=== PATIENT | male | born 1950 | race Caucasian/White ===

== ENCOUNTER 2017-03-18 09:12 | Day surgery (SDC) | payer MEDICARE, BC ==
[~2017-03-18] VITALS: Ht 185.4 cm; Wt 118.5 kg
[2017-03-18] VITALS (12 sets, daily range): BP systolic 100–131; BP diastolic 58–84; PULSE 57–67; RESP 12–18; TEMP 97–97.8; O2SAT 91–97; Ht 185.4 cm; Wt 118.5 kg
[~2017-03-18 09:12] MED LIST: LIDOCAINE 1% (10mg/ml) 2ml SDV INJ ONE; LR 1,000 ML IV SCH
--- OUTSIDE RECORDS SUMMARY | 2017-03-18 09:18 | XMS REPORT | Continuity of Care Document ---
Author Author [facility] Organization [facility] Address Unknown Phone Unavailable Allergies Medications Problems Procedures Code Description Performed By Performed On 14.52 DETACH RETINA-CRYOTHERAP Alton Caballero MD 05/05/2013 14.74 MECH VITRECTOMY NEC Alton Caballero MD 05/05/2013 Results Test Result Range HEMOGLOBIN - 05/05/13 06:00 MEAN CELL VOLUME 91.2 fl 80.0-100.0 HEMOGLOBIN 16.7 gm/dL 14.0-18.0 METABOLIC PANEL, BASIC - 05/05/13 06:00 POTASSIUM 4.3 mmol/L 3.5-5.3 EST GFR (MDRD) > 60 mL/min > 59 ANION GAP 10 mmol/L 5-15 EST CrCl (CG) > 60 mL/min > 59 GLUCOSE 115 mg/dL 70-99 CALCIUM 8.5 mg/dL 8.5-10.1 BLOOD UREA NITROGEN 18 mg/dL 7-20 CREATININE 1.2 mg/dL 0.8-1.3 SODIUM 143 mmol/L 135-148 CHLORIDE 107 mmol/L 98-110 CARBON DIOXIDE 26 mmol/L 21-32 Encounters ACCT No. Visit Date/Time Discharge Status Pt. Type Provider Facility Loc./Unit Complaint [id number] 05/05/2013 05:37:00 2012 08:45:00 DIS Outpatient Alton Caballero MD [facility] [place]
[2017-03-18] MEDS ORDERED: DIAPLEX PO (09:48)
[2017-03-18] MEDS ORDERED: CYCL-375 PO (09:50)
[2017-03-18] MEDS ORDERED: MELO-267 PO (09:50)
--- NOTE | 2017-03-18 10:34 | ANESPREOP ---
Anesthesia Record Date and Time DATE: 03/18/17 TIME: 10:31 Proposed Surgical Procedure RT ULNAR NERVE TRANSPOSITION NPO since: 2229 Allergies: Coded Allergies: ciprofloxacin (Verified Allergy, Mild, ITCHING, 03/18/17) Ht/Wt/BMI Height: 6 ' 1.00 " Weight: 118.500 kg BMI: 34.5 kg/m2 Vital Signs Date Time Temp Pulse Resp B/P Pulse Ox O2 Delivery O2 Flow Rate FiO2 03/18/17 09:30 97.8 67 18 128/84 94 Room Air Medications Inpatient Medications Current Medications Medications (Trade) Dose Ordered Sig/Rachel Start Time Stop Time Status Last Admin Dose Admin Lactated Ringer's (Lactated Ringers) 1,000 ml @ 50 mls/hr Q20H 03/18/17 07:00 03/18/17 09:45 50 MLS/HR Cyclobenzaprine HCl (Cyclobenzaprine HCl) 10 Mg Tablet, 1 TAB PO TID PRN for PAIN/AIR HUNGER, (Reported) Last Taken: on 03/04/17 0800 Meloxicam (Meloxicam) 15 Mg Tablet, 15 MG PO DAILY, (Reported) Last Taken: on 03/04/17 0949 [Diaplex] , 1 CAP PO DAILY, (Reported) Last Taken: on 03/10/17 0830 Currently on Beta Dacia: No Medical/Surgical History Anesthesia PMH: Reports: *Hypertension (HX. NOT ON REGULAR BASIS-NO MEDS), Arthritis, CVA/Stroke/TIA (questionable TIA in the past), Obesity, Other ( chronic numbness of right hand, fingers over 6 months. ), Sleep Apnea (per ) Smoking Status: Former smoker (quit 12 years ago) Use Chewing Tobacco?: No (former quit 6 years ago) Substance Use Type: does not use Alcohol Intake: rarely Past Surgical History Orthopedic Surgeries: Abdominal Surgeries: Genitourinary Surgeries: Cardiac Surgeries: Endocrine Surgeries: Reproductive Surgeries: Neurological Surgeries: Ear Surgeries: Nose Surgeries: Throat Surgeries: Other Surgeries: Yes - TORN RETINA, CAT.- LEFT EYE Anesthesia Adverse Reactions: FOUND none Family Hx of Anesthesia Advers: none Hx of Motion Sickness: No Physical Exam Respiratory: Bilat breath sounds equal, Lungs clear Cardiovascular: FOUND Regular rate, rhythm, FOUND No murmur Airway Assessment Mallampati Score: II TMD: 3 Fingerbreadths Neck Extension: Fair Overall Assessment: No Airway Concerns ASA: 3 Plan Anesthesia Plan: LMA, GETA Discussion Discussed risks/options/alternatives of anesthesia and questions answered. Patient consents. Nursing pain assessment noted. Present: Family Member Attestation Statement Prior to the delivery of any anesthetic medication, I examined the patient, developed the plan, obtained the patient's consent and discussed the risk and benefits of the procedure with the patient/guardian. IRMA HILL CASE REPAIRER Mar 18, 2017 10:34
[2017-03-18] MEDS ORDERED: LIDOCAINE 2% (20mg/ml) 5ml PF SDV ONE (11:25)
[2017-03-18] MEDS ORDERED: PROPOFOL 200mg 20 ML IV ONE (11:25)
[2017-03-18] MEDS ORDERED: FENTANYL 100mcg/2ml INJECTION ONE (11:30)
[2017-03-18] MEDS ORDERED: MIDAZOLAM 2mg/2ml INJECTION ONE (11:30)
[2017-03-18] MEDS ORDERED: ONDANSETRON 4mg/2ml INJECTION ONE (12:38)
[2017-03-18] MEDS ORDERED: BUPIVACAINE 0.25% (2.5mg/ml) INJ 30ml SDV ONE (12:39)
[2017-03-18] MEDS ORDERED: CEFAZOLIN 1 GRAM INJECTION IV ONE (12:45)
--- NOTE | 2017-03-18 13:21 | PDPROCED ---
Immediate Operative Note DATE: 03/18/17 TIME: 13:19 Preop Diagnosis: RIGHT CUBITAL TUNNEL SYNDROME Postop Diagnosis: Right cubital tunnel syndrome Surgical Procedures: Other (right elbow ulnar nerve decompression) Surgeon: Eda Firer Portable Boiler: SHUBHAM Gunn Anesthesia: General Complications: none Estimated Blood Loss see anesthesia ALTHEA TREVINO Mar 18, 2017 13:20
[2017-03-18] MEDS ORDERED: ONDA4TAB4 PO (13:58)
[2017-03-18] MEDS ORDERED: HYDR-3989 PO (13:58)
--- NOTE | 2017-03-18 14:08 | OPNOTEF ---
DATE OF PROCEDURE 03/18/2017 PREOPERATIVE DIAGNOSIS Right elbow cubital tunnel syndrome. POSTOPERATIVE DIAGNOSIS Right elbow cubital tunnel syndrome. PROCEDURE Right ulnar nerve in-situ decompression. SURGEON Nakul Veras MD PASTEURIZING SUPERVISOR Adan Rubio PA-C ANESTHESIA General. FLUIDS Please refer to Anesthesia chart. EBL Minimal. TOURNIQUET Please refer to Anesthesia chart. COMPLICATIONS None. CONDITION Stable to recovery room. DESCRIPTION OF PROCEDURE The patient was identified in the preoperative holding area. The operative extremity was identified and appropriately marked. Risks, benefits, alternatives and potential complications were discussed. Informed consent was obtained. The patient was taken to the operating theatre, placed supine on the operating table. Appropriate cardiorespiratory monitors were applied. General anesthesia was induced. Tourniquet was applied high on the right arm though not yet inflated. Right upper extremity was sterilely prepped and draped in the usual fashion. Surgical time-out was performed, confirmed with myself, the assisted living home director and circulating nurse. Preoperative antibiotics were given. Appropriate surgical landmarks were delineated on the skin with a surgical marking pen. The arm was then exsanguinated with an Esmarch and the tourniquet inflated to 250 mmHg. An 8-cm curved incision was created just posterior to the medial epicondyle. Electrocautery was used for hemostasis as necessary. Blunt dissection was carried down through the subcutaneous fat. Full-thickness subcutaneous flaps were elevated anteriorly. Blunt dissection was carried down through the fascia posterior to the medial epicondyle to identify the ulnar nerve in its palpable position. This area was dissected revealing the nerve. Careful meticulous dissection was then carried distally, releasing Parr's ligament posteriorly. Care was taken to try to leave the bulk of the ligament anteriorly attached to the medial epicondyle so as to prevent subluxation of the nerve. Dissection continued distally to the fascia of the FCU which was incised longitudinally under direct visualization. The nerve was then visualized until it entered the heads of the FCU. Muscle fibers were split to assure no compression of the nerve as well. Attention was then turned back proximally. The intermuscular fascia was incised releasing the ligament. The intermuscular septum was then released as well. At this time we had a complete release. The elbow was taken through full range of motion, noting no subluxation of the ulnar nerve. Inspection of the nerve revealed an hourglass compressed area which was located at the site of Parr's ligament indicating this was likely causing most of his compression. The wound was then copiously irrigated. Skin was closed in a standard layered fashion. Sterile dressings were applied followed by a posterior splint. Tourniquet was deflated. The patient was awakened from anesthesia and taken to the recovery room in stable and satisfactory condition. KRISTINA
--- NOTE | 2017-03-18 14:19 | ANESPO ---
Post-Op Note Date 03/18/17 Time: 13:56 Status Pt Participated in Evaluation: Pt participated in person Vital Signs Date Time Temp Pulse Resp B/P Pulse Ox O2 Delivery O2 Flow Rate FiO2 03/18/17 14:02 57 16 107/73 95 Room Air 03/18/17 13:47 97.6 03/18/17 13:35 2.00 Respiratory Function: Airway patent Cardiovascular Function: Regular pulse Mental Status: Alert/oriented Pain Level Intensity: 0 Hydration: Taking po fluids Complications during Recovery None apparent Follow-Up Instructions Instructions Per Surgeon KAYDEN ANDERSON CRNA Mar 18, 2017 14:19
== END 2017-03-18 14:22 | disposition home or self-care (01) ==
LOC: NSC 09:12
PROVIDERS: ATTEND Orthopaedic Surgery
DX: G56.21 Lesion of ulnar nerve, right upper limb (principal); Z79.82 Long term (current) use of aspirin; Z88.1 Allergy status to other antibiotic agents; Z87.891 Personal history of nicotine dependence
CPT/HCPCS: 64718; A6222; J2250; J2405; J2704; J3010; J7120